=== PATIENT | male | born 1995 | race Caucasian/White ===

== ENCOUNTER 2018-04-29 18:46 | Emergency (ER) | payer BC ==
[2018-04-29] MEDS ORDERED: Diazepam TAB(*) 5 MG PO ONE (19:23)
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
--- NOTE | 2018-04-29 20:16 | ED ---
Back Pain - HPI Summary HPI Summary: Complains of sudden onset mid back pain starting yesterday while at work. Denies trauma, heavy lifting, fever, cough, sore throat, CP, SOB, N/V/D, abdominal pain, change in urinary BM. Mild relief with ibuprofen. Medical history is none. Patient ambulatory, denies urinary retention or bowel incontinence. - History of Current Complaint Chief Complaint: EDBackInjuryPain Stated Complaint: RT SIDE BACK PAIN Time Seen by Provider: 04/29/18 19:16 Hx Obtained From: Patient Onset/Duration: Sudden Onset Onset/Duration: Started Days Ago Timing: Constant Severity Initially: Moderate Severity Currently: Moderate Pain Intensity: 7 Pain Scale Used: 0-10 Numeric Character: Sharp, Throbbing Aggravating Symptom(s): Movement Alleviating Symptom(s): Rest Associated Signs And Symptoms: Positive: Negative - Allergies/Home Medications Allergies/Adverse Reactions: Allergies Allergy/AdvReac Type Severity Reaction Status Date / Time No Known Allergies Allergy Verified 04/29/18 19:06 PMH/Surg Hx/FS Hx/Imm Hx Endocrine/Hematology History: Denies: Hx Anticoagulant Therapy, Hx Thyroid Disease Cardiovascular History: Denies: Hx Cardiac Arrest History: Denies: Hx Dialysis, Hx Renal Disease Neurological History: Denies: Hx CVA, Hx Seizures Infectious Disease History: No Infectious Disease History: Denies: Traveled Outside the [place] in Last 30 Days - Social History Alcohol Use: None Substance Use Type: Reports: None Smoking Status (MU): Never Smoked Tobacco Review of Systems Constitutional: Negative Eyes: Negative ENT: Negative Cardiovascular: Negative Respiratory: Negative Gastrointestinal: Negative Genitourinary: Negative Musculoskeletal: Other Skin: Negative Neurological: Negative Psychological: Normal All Other Systems Reviewed And Are Negative: Yes Physical Exam - Summary Physical Exam Summary: Tenderness to palpation along paraspinal muscles of T-spine. PMS intact distally on her bilateral upper extremities Triage Information Reviewed: Yes Vital Signs On Initial Exam: Initial Vitals Temp Pulse Resp BP Pulse Ox 98.6 F 88 18 140/74 98 04/29/18 18:49 04/29/18 18:49 04/29/18 18:49 04/29/18 18:49 04/29/18 18:49 Vital Signs Reviewed: Yes Appearance: Positive: Well-Appearing Skin: Positive: Warm Head/Face: Positive: Normal Head/Face Inspection Eyes: Positive: Normal Neck: Positive: Supple Respiratory/Lung Sounds: Positive: Clear to Auscultation Cardiovascular: Positive: Normal Abdomen Description: Positive: Nontender Musculoskeletal: Positive: Normal Neurological: Positive: Normal Psychiatric: Positive: Normal AVPU Assessment: Alert - Jessica Coma Scale Best Eye Response: 4 - Spontaneous Best Motor Response: 6 - Obeys Commands Best Verbal Response: 5 - Oriented Coma Scale Total: 15 Diagnostics - Vital Signs Vital Signs Temp Pulse Resp BP Pulse Ox 04/29/18 19:31 16 04/29/18 18:49 98.6 F 88 18 140/74 98 - Laboratory Lab Statement: Any lab studies that have been ordered have been reviewed, and results considered in the medical decision making process. - Radiology cxr Xray Interpretation: No Acute Changes Radiology Interpretation Completed By: Radiologist Back Pain Course/Dx - Course Course Of Treatment: Complains of sudden onset mid back pain starting yesterday while at work. Denies trauma, heavy lifting, fever, cough, sore throat, CP, SOB , N/V/D, abdominal pain, change in urinary BM. Mild relief with ibuprofen. Medical history is none. Patient ambulatory, denies urinary retention or bowel incontinence. Physical exam:Tenderness to palpation along paraspinal muscles of T-spine. PMS intact distally on her bilateral upper extremities. Vital signs within normal limits. Chest x-ray negative. Patient improved with Valium and Toradol. Rx for Valium. - Diagnoses Provider Diagnoses: Muscle spasm Discharge - Sign-Out/Discharge Documenting (check all that apply): Patient Departure - Discharge Plan Condition: Stable Disposition: HOME Prescriptions: Diazepam TAB(*) [Valium TAB(*)] 5 mg PO TID PRN 1 Days #3 tab MDD 3 tabs PRN Reason: Pain Patient Education Materials: Muscle Spasm (ED) Referrals: Gianni Lopez MD [Primary Care Provider] - Additional Instructions: Return to the ED for any new or worsening symptoms - Billing Disposition and Condition Condition: STABLE Disposition: Home
[2018-04-29] MEDS ORDERED: Ketorolac INJ* 60 MG/2 ML VIAL IM ONE (20:22)
[2018-04-29] MEDS ORDERED: Ketorolac INJ* 30 MG/ML 1 ML VIAL IM ONE (20:23)
[2018-04-29 21:26] VITALS: BP 114/54
== END 2018-04-29 21:24 | disposition home or self-care (01) ==
LOC: ED 18:46
DX: M62.830 Muscle spasm of back (principal)
CPT/HCPCS: 71111; 99282; A9270-GY; J1885